=== PATIENT | female | born 1945 | race Two or more races ===

== ENCOUNTER 2017-01-27 11:07 | Emergency (ER) | payer MEDICARE, MEDICAID ==
[~2017-01-27] VITALS: Ht 162.6 cm; Wt 63.5 kg
[~2017-01-27 11:07] MED LIST: ALEN70TA45 PO; ASPI81TA31 PO; BIMA2.5D5 EACHEYE; BRIM5DRO3 EACHEYE; CALC1TAB91 PO; CHOL200074 PO; DEXT1DRO3 OP; DORZ10DR8 EACHEYE; ESCI10TA PO; LORA1TAB PO; OMEP40CA37 PO
--- NOTE | 2017-01-27 11:20 | NUR ---
md at bedside for portable us of both eyes. pt tolerated well
--- NOTE | 2017-01-27 11:23 | NUR ---
PT IS UNABLE TO RECOGNIZE YI ALPHABET FOR THE VISUAL ACUITY TEST- FAMILIAR WITH [employer] AND IT'S LETTERS ONLY.
--- NOTE | 2017-01-27 12:00 | NUR ---
radha malin at bedside using the tonometer brought from [facility]. pt tolerated well.
[2017-01-27] MEDS ORDERED: TETRACAINE HCL 0.5% OPHT DROP 2 ML BOTTLE OP ONE (12:15)
[2017-01-27] MEDS ORDERED: TETRACAINE HCL 0.5% OPHT DROP 2 ML BOTTLE ONE (12:28)
== END 2017-01-27 12:34 | disposition home or self-care (01) ==
LOC: ER 11:07
DX: H53.8 Other visual disturbances (principal); R51 Headache; F41.9 Anxiety disorder, unspecified; K21.9 Gastro-esophageal reflux disease without esophagitis; H40.9 Unspecified glaucoma; Z79.82 Long term (current) use of aspirin
CPT/HCPCS: A4663